=== PATIENT | male | born 1980 | race Caucasian/White ===

== ENCOUNTER 2020-02-15 16:38 | Emergency (ER) | payer OTHER ==
[~2020-02-15] VITALS: Ht 193 cm; Wt 77.1 kg
--- NOTE | 2020-02-16 11:59 | EKG ---
[facility] [address] [facility] [place] [address] Signed Sinus rhythm with occasional premature ventricular complexes Rightward axis Borderline ECG No previous ECGs available Confirmed by JESSICA PRITCHARD MD ([id number] on 02/16/2020 11:59:12 AM Electronically Signed By: JESSICA PIRTCHARD MD 02/16/20 1159 PATIENT NAME: HI DAMON Electrocardiogram DATE OF : 76 PHYSICIAN: JESSICA PRITCHARD MD REPORT #: [id number] REPORT IS CONFIDENTIAL AND NOT TO BE RELEASED WITHOUT AUTHORIZATION
== END 2020-02-15 19:14 | disposition home or self-care (01) ==
LOC: ED 16:38
DX: R06.02 Shortness of breath (principal); F41.8 Other specified anxiety disorders; F12.10 Cannabis abuse, uncomplicated
CPT/HCPCS: 71260; 74177; 80053; 81001; 83735; 84439; 84443; 84484; 85025; 93005; 93010; J7030; Q9967